=== PATIENT | male | born 1995 | race American Indian/Alaskan Native ===

== ENCOUNTER 2021-05-02 04:40 | Emergency (ER) | payer SELFPAY ==
[2021-05-02 04:52] VITALS: BP 164/96
[2021-05-02] MEDS ORDERED: ACETAMINOPHEN 500 MG TAB PO ONE (06:04)
[2021-05-02] MEDS ORDERED: IBUPROFEN 600 MG TAB PO ONE (06:04)
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
== END 2021-05-02 07:17 | disposition home or self-care (01) ==
LOC: ED 04:40
DX: S46.912A Strain of unspecified muscle, fascia and tendon at shoulder and upper arm level, left arm, initial encounter (principal); J45.909 Unspecified asthma, uncomplicated; F17.200 Nicotine dependence, unspecified, uncomplicated; Z72.89 Other problems related to lifestyle; Z79.899 Other long term (current) drug therapy; V89.2XXA Person injured in unspecified motor-vehicle accident, traffic, initial encounter; Y93.89 Activity, other specified; Y92.488 Other paved roadways as the place of occurrence of the external cause; Y99.8 Other external cause status
CPT/HCPCS: 99282